=== PATIENT | female | born 1970 | race Caucasian/White ===

== ENCOUNTER → 2020-02-26 | Outpatient (CLI) | payer OTHER ==
[~2020-02-26] MED LIST: ALLOPURINOL 10100 M1; CIPROFLOXACIN500 M1 PO; ESTRACE; ESTRACE1 MG PO; FLAGYL500 MG PO; HORMONES; PROGESTERONE100 MG PO; TRANSDERM-SCO1 PATC1 TD; ZOFRAN4 MG PO
== END ==
LOC: M.MRI 16:48
PROVIDERS: ATTEND Family Medicine
DX: H70.091 Acute mastoiditis with other complications, right ear (principal); Z86.69 Personal history of other diseases of the nervous system and sense organs

== ENCOUNTER → 2021-07-14 | Outpatient (CLI) | payer OTHER | LOC: M.CT 13:00 | DX: F17.200 Nicotine dependence, unspecified, uncomplicated (principal) ==